=== PATIENT | male | born 1935 | race Two or more races ===

== ENCOUNTER 2019-01-19 08:58 | Outpatient (CLI) | payer OTHER ==
[2019-01-20] MEDS ORDERED: ULTRACET PO ×2 (09:44)
== END 2019-01-19 09:12 | disposition home or self-care (01) ==
LOC: LAB 08:58
DX: D69.49 Other primary thrombocytopenia (principal); D68.8 Other specified coagulation defects

== ENCOUNTER 2019-01-20 06:00 | Day surgery (SDC) | payer OTHER ==
[2019-01-20] MEDS ORDERED: ULTRACET PO ×2 (09:44)
== END 2019-01-20 14:10 | disposition home or self-care (01) ==
LOC: CIR.AMB 06:00 → EDSTATUS 10:00 → SURH 10:00 → CIR.AMB 13:15
DX: K80.10 Calculus of gallbladder with chronic cholecystitis without obstruction (principal)